=== PATIENT | female | born 1965 | race Two or more races ===

== ENCOUNTER → 2022-10-13 | Outpatient (CLI) | payer MEDICAID ==
[~2022-10-13] VITALS: Ht 162.6 cm; Wt 95.3 kg
[~2022-10-13] MED LIST: ADENOSINE 80 MG in GIVE UN-DILUTED 0 ML IV ONE
== END | disposition home or self-care (01) ==
LOC: XYW 08:17
PROVIDERS: ATTEND Specialist
DX: I10 Essential (primary) hypertension (principal); E78.5 Hyperlipidemia, unspecified
CPT/HCPCS: 78452; 93017; A9500; J0153